=== PATIENT | male | born 1960 | race Caucasian/White ===

== ENCOUNTER → 2021-12-28 | Outpatient (CLI) | payer OTHER ==
[~2021-12-28] MED LIST: METF-380 PO
--- NOTE | 2021-12-28 12:19 | Diagnostic Imaging Report ---
PROCEDURE: CT abdomen and pelvis without contrast. TECHNIQUE: Multiple contiguous axial images were obtained through the abdomen and pelvis without the use of intravenous contrast. Auto Exposure Controls were utilized during the CT exam to meet ALARA standards for radiation dose reduction. INDICATION: Prostate carcinoma. COMPARISON: No prior studies are available for comparison. Imaging through the lung bases does show a 7 mm nodule in the lateral aspect of the right lower lobe. There is also a subpleural nodule posteriorly in the right lower lobe measuring 4 mm. These are indeterminate. The liver and gallbladder are unremarkable. The pancreas and spleen are unremarkable. No adrenal mass is identified. The kidneys are unremarkable. No calculi or hydronephrosis is detected. Aorta is nonaneurysmal. No central retroperitoneal or mesenteric lymphadenopathy is seen. Bowel loops are normal caliber. There is moderate stool in the colon. There is no free fluid or fluid collection. Bladder is unremarkable. The prostate is enlarged. No pelvic lymphadenopathy is identified. Bony structures are unremarkable. IMPRESSION: 1. Indeterminate pulmonary micronodules, right lower lobe. Follow-up to confirm stability would be recommended. 2. No evidence of abdominal or pelvic lymphadenopathy or metastatic disease. There is prostatomegaly present. Dictated by: Dictated on workstation # [id number]
--- NOTE | 2021-12-28 15:45 | Diagnostic Imaging Report ---
INDICATION: Newly diagnosed prostate carcinoma. EXAMINATION: Patient was administered 25.1 mCi technetium 99m MDP intravenously and whole-body imaging was performed after 3 hour delay. COMPARISON: No prior studies are available for comparison. FINDINGS: There is normal uptake of activity by the axial and appendicular skeleton. There is uptake by the kidneys with excretion into the urinary bladder. There is some mild uptake in a lower thoracic vertebral body, approximately T8, which is indeterminate. There is some mild uptake in the cervical spine, likely from facet arthropathy. No other abnormalities are detected. IMPRESSION: There is uptake in the cervical spine and lower thoracic spine which may be degenerative. No other suspicious foci are identified to suggest osseous metastatic disease. Dictated by: Dictated on workstation # [id number]
== END ==
LOC: CARD 11:00
PROVIDERS: ATTEND Urology
DX: C61 Malignant neoplasm of prostate (principal); R91.8 Other nonspecific abnormal finding of lung field
CPT/HCPCS: 74176; 78306

== ENCOUNTER 2022-01-28 08:14 | Outpatient (RCR) | payer OTHER | END 2022-01-31 | disposition home or self-care (01) | LOC: ONC 08:14 | PROVIDERS: ATTEND Radiology Radiation Oncology | DX: C61 Malignant neoplasm of prostate (principal) | CPT/HCPCS: 76873; 99204 ==

== ENCOUNTER 2022-02-19 05:28 | Outpatient (CLI) | payer OTHER ==
[~2022-02-19] VITALS: Ht 165.1 cm; Wt 71.8 kg
[2022-02-20] MEDS ORDERED: MELO15TA14 PO (12:07)
[2022-02-20] MEDS ORDERED: TMSL.4C PO (12:07)
[2022-02-20] MEDS ORDERED: GABA-486 PO (12:07)
[2022-02-20] MEDS ORDERED: METF-399 PO (12:07)
[2022-02-20] MEDS ORDERED: TADA5TAB13 PO (12:08)
== END 2022-02-20 12:26 | disposition home or self-care (01) ==
LOC: PREOP 05:28
PROVIDERS: ATTEND Urology
DX: Z01.818 Encounter for other preprocedural examination (principal)

== ENCOUNTER 2022-02-26 05:49 | Day surgery (SDC) | payer OTHER ==
[~2022-02-26] VITALS: Ht 165.1 cm; Wt 71.8 kg
[2022-02-26] VITALS (9 sets, daily range): BP systolic 115–134; BP diastolic 71–89
[~2022-02-26 05:49] MED LIST changes: +GABA-486 PO; +MELO15TA14 PO; +METF-399 PO; +TADA5TAB13 PO; +TMSL.4C PO
[2022-02-26] MEDS ORDERED: SEVOFLURANE (ULTANE) 15 ML INHAL SOLN ONE (06:47)
[2022-02-26] MEDS ORDERED: ONDANSETRON 4 MG/2 ML (SDV) Z0FRAN ONE (06:47)
[2022-02-26] MEDS ORDERED: LIDOCAINE PF 2% 5 ML (XYLOCAINE) VIAL ONE (06:47)
[2022-02-26] MEDS ORDERED: fentaNYL INJ 100 MCG/2 ML AMP ONE (06:47)
[2022-02-26] MEDS ORDERED: proPOfol 200 MG/20 ML (DIPRIVAN) VIAL IV ONE (06:47)
[2022-02-26] MEDS ORDERED: MIDAZOLAM 2 MG/2 ML (VERSED) VIAL ONE (06:47)
--- NOTE | 2022-02-26 07:15 | Progress Note-Pre Operative ---
Pre-Operative Progress Note H&P Reviewed The H&P was reviewed, patient examined and no changes noted. Date Seen by Provider: Feb 26, 2022 Time Seen by Provider: 07:14 Date H&P Reviewed: Feb 26, 2022 Time H&P Reviewed: 07:14 Pre-Operative Diagnosis: CA PROSTATE RORY HIDALGO MD Feb 26, 2022 07:14
--- NOTE | 2022-02-26 07:18 | Progress Note-Post Operative ---
Post-Operative Progess Note Surgeon (s)/Computer Trainer (s) Surgeon SKY DHALIWAL MD, RORY HIDALGO MD Computer Trainer: NONE Pre-Operative Diagnosis CA PROSTATE Post-Operative Diagnosis SAME Procedure & Operative Findings Date of Procedure 02/26/22 Procedure Performed/Findings BRACHYTHERAPY, SPACE OAR, AND CYSTOGRAM Anesthesia Type GENERAL Estimated Blood Loss Estimated blood loss (mL): NEGLIGIBLE Specimens/Packing Specimens Removed NONE Packing: NONE RORY HIDALGO MD Feb 26, 2022 07:18
--- NOTE | 2022-02-26 07:24 | Discharge Inst-Urology ---
Discharge Inst-Urology Reconcile Patient Problems Problems Reviewed?: Yes Final Diagnosis CA PROSTATE Patient Instructions/Follow Up Plan/Assessment/Instructions Discharge with chen and leg bag day time and large bag night time with instructions Come to office 02/28 9am to REINA Chen Please make appointment to been seen in office by me in 3 weeks. Rest till then Increase oral fluids for 48 hours and then as needed. Diet as tolerated. Keep bowels soft and moving If questions or concerns contact your physician Or seek help at emergency department. RORY HIDALGO MD Feb 26, 2022 07:24
[2022-02-26] MEDS ORDERED: LACTATED RINGERS 1,000 ML IV PRN (07:30)
[2022-02-26] MEDS ORDERED: MIDAZOLAM SYRUP (VERSED) 10MG/5ML UDC PO ONE (07:45)
[2022-02-26] MEDS ORDERED: IBUPROFEN SUSP 100MG/5ML (MOTRIN) UDC PO ONE (07:45)
[2022-02-26] MEDS ORDERED: BACITRACIN OINTMENT 28 GM TUBE ONE (08:07)
[2022-02-26] MEDS ORDERED: CIPR500T5 PO (08:52)
[2022-02-26] MEDS ORDERED: KETO10TA PO (08:52)
[2022-02-26] MEDS ORDERED: PHEN-640 PO (08:52)
[2022-02-26] MEDS ORDERED: HYDROmorphone 2 MG/ML VIAL (DILAUDID) IV ONE (09:00)
[2022-02-26] MEDS ORDERED: ONDANSETRON 4 MG/2 ML (SDV) Z0FRAN IVP PRN (09:00)
--- NOTE | 2022-02-26 10:39 | Anesthesia-General Post-Op ---
General Patient Condition Mental Status/LOC: Same as Preop Cardiovascular: Satisfactory Nausea/Vomiting: Absent Respiratory: Satisfactory Pain: Controlled Complications: Absent Post Op Complications Complications None Follow Up Care/Instructions Patient Instructions None needed. Anesthesia/Patient Condition Patient Condition Patient is doing well, no complaints, stable vital signs, no apparent adverse anesthesia problems. No complications reported per nursing. [place] [facility] [facility] [place] Yes JESSICA STEINBERG CRNA Feb 26, 2022 10:39
--- NOTE | 2022-02-26 12:10 | Diagnostic Imaging Report ---
FLUOROSCOPY UP TO 1 HOUR INDICATION: Brachytherapy for prostate cancer. COMPARISON: None available. FINDINGS AND IMPRESSION: Single spot fluoroscopic image shows numerous metallic markers in the prostate for brachytherapy. Contrast is present in the urinary bladder with a Stephens catheter in place. A total of 13.8 seconds of fluoroscopy time was utilized. Please see procedure report for more complete details. Dictated by: Dictated on workstation # [id number]
== END 2022-02-26 10:45 | disposition home or self-care (01) ==
LOC: SDC 05:49
PROVIDERS: ATTEND Urology
DX: C61 Malignant neoplasm of prostate (principal); E11.9 Type 2 diabetes mellitus without complications; Z79.84 Long term (current) use of oral hypoglycemic drugs
CPT/HCPCS: 76000; 76965; 77290; 77318; 77332; 77370; 77470; 77778; 82947; 87081

== ENCOUNTER 2022-03-26 08:55 | Outpatient (RCR) | payer OTHER ==
[~2022-03-26 08:55] MED LIST changes: +CIPR500T5 PO; +KETO10TA PO; +PHEN-640 PO
== END 2022-04-02 | disposition home or self-care (01) ==
LOC: ONC 08:55
PROVIDERS: ATTEND Radiology Radiation Oncology
DX: C61 Malignant neoplasm of prostate (principal)
CPT/HCPCS: 77290

== ENCOUNTER → 2022-05-02 | Outpatient (CLI) | payer OTHER | LOC: ONC 14:00 | PROVIDERS: ATTEND Radiology Radiation Oncology | DX: Z53.9 Procedure and treatment not carried out, unspecified reason (principal) | CPT/HCPCS: 77295 ==

== ENCOUNTER 2022-08-08 09:11 | Outpatient (RCR) | payer OTHER | END 2022-09-02 | disposition home or self-care (01) | LOC: ONC 09:11 | PROVIDERS: ATTEND Radiology Radiation Oncology | DX: C61 Malignant neoplasm of prostate (principal) | CPT/HCPCS: 36415; 84153; 99212 ==

== ENCOUNTER 2023-02-13 09:28 | Outpatient (RCR) | payer OTHER | END 2023-03-02 | disposition home or self-care (01) | LOC: ONC 09:28 | PROVIDERS: ATTEND Radiology Radiation Oncology | DX: C61 Malignant neoplasm of prostate (principal) | CPT/HCPCS: 36415; 84153; 99213 ==